=== PATIENT | female | born 1980 | race African-American/Black ===

== ENCOUNTER 2017-08-01 09:51 | Emergency (ER) | payer OTHER ==
[~2017-08-01] VITALS: Ht 165.1 cm; Wt 92.0 kg
[~2017-08-01 09:51] MED LIST: ACET-3161 PO; AMLO-375 PO; GABA-290 PO; HYDR200T PO; METH250T11 PO; PREN-52 PO
[2017-08-01 10:23] LABS: BASOPHILS % 0.6 % (0.0-2.0); EOSINOPHILS % 3.6 % (0.0-5.0); HEMATOCRIT. 29.2 % (36.0-48.0); HEMOGLOBIN. 9.6 g/dL (12.0-16.0); LYMPHOCYTES % 20.9 % (20.0-50.0); MEAN CORPUSCULAR HEMOGLOBIN 27.5 pg (28.0-32.0); MEAN CORPUSCULAR VOLUME 83.7 fL (81.0-99.0); MEAN PLATELET VOLUME 7.3 fl (7.4-10.4); MONOCYTES % 8.8 % (2.0-8.0); NEUTROPHILS % 66.1 % (40.0-76.0); PLATELET 280 x1000/uL (130-400); RED BLOOD CELL COUNT 3.49 mill/uL (4.2-5.4); RED CELL DISTRIBUTION WIDTH 15.4 % (11.6-14.6)
[2017-08-01 10:39] LABS: CARBON DIOXIDE 26 mEq/L (21-32); CHLORIDE 102 mEq/L (98-107); TROPONIN I < 0.02 ng/mL (0.00-0.04)
[2017-08-01] MEDS ORDERED: CLINDAMYCIN 600 MG in DEXTROSE 5% WATER 50 ML IV ONE (10:45)
[2017-08-01] MEDS ORDERED: MORPHINE SULFATE 4 MG/ML CPJ (NOT FOR IM USE) IV ONE (10:45)
[2017-08-01] MEDS ORDERED: CLINDAMYCIN 600MG PREMIX 50 ML IV ONE (11:15)
[2017-08-01 13:05] VITALS: BP 145/75
== END 2017-08-01 13:08 | disposition home or self-care (01) ==
LOC: ER 10:02
DX: L03.116 Cellulitis of left lower limb (principal); L03.115 Cellulitis of right lower limb; I50.9 Heart failure, unspecified; I11.0 Hypertensive heart disease with heart failure; J45.909 Unspecified asthma, uncomplicated; M32.9 Systemic lupus erythematosus, unspecified; Z88.0 Allergy status to penicillin
CPT/HCPCS: 36415; 71010; 80053; 83880; 84484; 85025; 85610; 93970; 96365; 96375; 99285; J2270; J3490; J7060

== ENCOUNTER 2017-09-23 13:33 | Emergency (ER) | payer OTHER ==
[~2017-09-23] VITALS: Ht 175.3 cm; Wt 160.0 kg
[2017-09-23 19:14] LABS: CLARITY URINE CLEAR (CLEAR); COLOR URINE YELLOW (YELLOW); KETONES URINE NEGATIVE (NEGATIVE); LEUKOCYTE ESTERASE URINE NEGATIVE (NEGATIVE); NITRITE URINE NEGATIVE (NEGATIVE); OCCULT BLOOD URINE TRACE (NEGATIVE); PROTEIN URINE 3+ (NEGATIVE); UROBILINOGEN URINE 0.2 E.U./dL (0.2-1.0)
[2017-09-23 19:23] LABS: BASOPHILS % 0.3 % (0.0-2.0); EOSINOPHILS % 0.5 % (0.0-5.0); HEMATOCRIT. 24.3 % (36.0-48.0); HEMOGLOBIN. 7.5 g/dL (12.0-16.0); LYMPHOCYTES % 18.8 % (20.0-50.0); MEAN CORPUSCULAR HEMOGLOBIN 25.2 pg (28.0-32.0); MEAN CORPUSCULAR VOLUME 81.1 fL (81.0-99.0); MEAN PLATELET VOLUME 6.7 fl (7.4-10.4); NEUTROPHILS % 72.4 % (40.0-76.0); PLATELET 545 x1000/uL (130-400); RED BLOOD CELL COUNT 2.99 mill/uL (4.2-5.4); RED CELL DISTRIBUTION WIDTH 15.9 % (11.6-14.6)
[2017-09-23 19:24] LABS: CARBON DIOXIDE 24 mEq/L (21-32); CHLORIDE 107 mEq/L (98-107)
[2017-09-23] MEDS ORDERED: HYDROCODONE/ACETAMINOPHEN 5/325MG TABLET PO ONE (20:15)
[2017-09-23] MEDS ORDERED: KETOROLAC 60MG/2ML VIAL IM ONE (20:15)
[2017-09-24 00:37] VITALS: BP 145/75
== END 2017-09-24 00:39 | disposition home or self-care (01) ==
LOC: ER 13:33
DX: S00.11XA Contusion of right eyelid and periocular area, initial encounter (principal); S00.83XA Contusion of other part of head, initial encounter; M32.9 Systemic lupus erythematosus, unspecified; D64.9 Anemia, unspecified; J45.909 Unspecified asthma, uncomplicated; I50.9 Heart failure, unspecified; H11.31 Conjunctival hemorrhage, right eye; Z88.0 Allergy status to penicillin; W19.XXXA Unspecified fall, initial encounter; Y93.89 Activity, other specified; Y92.89 Other specified places as the place of occurrence of the external cause; Y99.8 Other external cause status
CPT/HCPCS: 36415; 80053; 81001; 81025; 83690; 85025; 86850; 86900; 86901; 96372; 99284; J1885; Z7610

== ENCOUNTER 2018-08-24 01:14 | Inpatient (IN) | payer OTHER ==
[~2018-08-24] VITALS: Ht 180.3 cm; Wt 139.7 kg
[~2018-08-24 01:14] MED LIST changes: -AMLO-375 PO; +AMLO5TAB88 PO; +AZAT50TA24 PO; +CETI10TA6 PO; +DULO60CA63 PO; +FURO40TA5 PO; -GABA-290 PO; +GABA-533 PO; +HYDR-4005 PO; -HYDR200T PO; +HYDR200T80 PO; -METH250T11 PO; +METH250T26 PO; +PRED5TAB PO; -PREN-52 PO; +ZOLP5TAB8 PO
[2018-08-24] MEDS ORDERED: ACETAMINOPHEN 500MG TABLET PO NR (02:15)
[2018-08-24] MEDS ORDERED: SODIUM CHLORIDE 0.9% 1,000 ML IV ONE (02:15)
[2018-08-24] MEDS ORDERED: METHYLPREDNISOLONE SOD SUCC 125 MG/2 ML VIAL IV ONE (02:15)
[2018-08-24 03:13] LABS: CHLORIDE 105 mEq/L (98-107)
[2018-08-24 03:14] LABS: HEMATOCRIT. 28.1 % (36.0-48.0); HEMOGLOBIN. 9.3 g/dL (12.0-16.0); MEAN CORPUSCULAR HEMOGLOBIN 30.7 pg (28.0-32.0); MEAN CORPUSCULAR VOLUME 92.5 fL (81.0-99.0); MEAN PLATELET VOLUME 6.6 fl (7.4-10.4); PLATELET 289 x1000/uL (130-400); RED BLOOD CELL COUNT 3.04 mill/uL (4.2-5.4); RED CELL DISTRIBUTION WIDTH 15.7 % (11.6-14.6)
[2018-08-24] MEDS ORDERED: VANCOMYCIN 1 G PREMIX 200 ML IV SCH (04:45)
[2018-08-24] MEDS ORDERED: PIPERACILLIN/TAZOBACTAM 3.375GM/50ML PREMIX IV ONE (04:45)
[2018-08-24] MEDS ORDERED: ONDANSETRON HCL 4MG/2ML INJ IV ONE (05:00)
[2018-08-24] MEDS ORDERED: MORPHINE SULFATE 4 MG/ML CPJ (NOT FOR IM USE) IV ONE (05:00)
[2018-08-24] MEDS ORDERED: PIPERACILLIN/TAZ 3.375G PREMIX 50 ML IV NR (05:15)
[2018-08-24 05:48] LABS: PLATELET ESTIMATE NORMAL
[2018-08-24 08:00] VITALS: BP 242/98
[2018-08-24 09:00] VITALS: BP 178/81
[2018-08-24] MEDS: HYDROMORPHONE HCL/PF 2MG/ML CPJ IV PRN (10:31)
[2018-08-24 12:00] VITALS: BP 143/66
[2018-08-24] MEDS: ENOXAPARIN 40MG/0.4ML SYR SUBCUT SCH (12:00)
[2018-08-24] MEDS ORDERED: VANCOMYCIN 1500MG in DEXTROSE 5% WATER 250ML IV NR (13:00)
[2018-08-24] MEDS ORDERED: HYDRALAZINE 20MG/ML VIAL IV PRN (15:30)
[2018-08-24] MEDS: PIPERACILLIN/TAZ 2.25G PREMIX 50 ML IV SCH ×2 (15:42→20:58)
[2018-08-24 16:00] VITALS: BP 150/68
[2018-08-24 16:20] LABS: BG BASE EXCESS -8.7 mmol/L (-2.0-2.0); BG CARBOXYHEMOGLOBIN 0.1 % (0.5-1.5); BG DEOXYHEMOGLOBIN 7.7 % (0.0-5.0); BG FRACTION INSPIRED OXYGEN 32; BG HCO3 ACT 15.5 mmol/L (22.0-26.0); BG METHEMOGLOBIN 0.2 % (0.0-1.5); BG OXYGEN SATURATION 92.3 % (92.0-98.5); BG PH 7.362 (7.350-7.450); BG SAMPLE SITE RIGHT BRACHIAL; BG TOTAL HEMOGLOBIN 10.1 g/dL (12.0-18.0); BG VENT MODE NASAL CANNULA
[2018-08-24 20:00] VITALS: BP 162/84
[2018-08-24] MEDS: LABETALOL HCL 100MG TABLET PO SCH (20:57)
[2018-08-24] MEDS: ACETAMINOPHEN 325MG TABLET PO PRN (20:58)
[2018-08-25] VITALS: BP 127/72
[2018-08-25] MEDS: METHYLPREDNISOLONE SOD SUCC 125 MG/2 ML VIAL IV SCH ×4 (00:45→21:48)
[2018-08-25 04:00] VITALS: BP 127/64
[2018-08-25] MEDS: HYDROMORPHONE HCL/PF 2MG/ML CPJ IV PRN ×2 (04:07→23:36)
[2018-08-25 05:05] LABS: CLARITY URINE CLEAR (CLEAR); COLOR URINE YELLOW (YELLOW); KETONES URINE NEGATIVE (NEGATIVE); LEUKOCYTE ESTERASE URINE NEGATIVE (NEGATIVE); NITRITE URINE NEGATIVE (NEGATIVE); OCCULT BLOOD URINE 3+ (NEGATIVE); PROTEIN URINE 3+ (NEGATIVE); SPECIFIC GRAVITY URINE 1.012 (1.005-1.030); UROBILINOGEN URINE 0.2 E.U./dL (0.2-1.0)
[2018-08-25 05:37] LABS: HEMATOCRIT. 25.4 % (36.0-48.0); HEMOGLOBIN. 8.5 g/dL (12.0-16.0); MEAN CORPUSCULAR HEMOGLOBIN 30.8 pg (28.0-32.0); MEAN CORPUSCULAR VOLUME 92.1 fL (81.0-99.0); MEAN PLATELET VOLUME 7.3 fl (7.4-10.4); PLATELET 284 x1000/uL (130-400); RED BLOOD CELL COUNT 2.76 mill/uL (4.2-5.4); RED CELL DISTRIBUTION WIDTH 15.9 % (11.6-14.6)
[2018-08-25] MEDS: ACETAMINOPHEN 325MG TABLET PO PRN ×3 (05:40→17:55)
[2018-08-25 05:43] LABS: CHLORIDE 101 mEq/L (98-107)
[2018-08-25] MEDS: SODIUM CHLORIDE 0.9% 1,000 ML IV SCH ×3 (05:43→23:49)
[2018-08-25 05:49] LABS: PHOSPHORUS 5.2 mg/dL (2.5-4.9)
[2018-08-25] MEDS: PIPERACILLIN/TAZ 2.25G PREMIX 50 ML IV SCH ×3 (06:41→17:19)
[2018-08-25 08:00] VITALS: BP 154/73
[2018-08-25] MEDS: LABETALOL HCL 100MG TABLET PO SCH ×2 (08:39→21:00)
[2018-08-25] MEDS: AMLODIPINE 10MG TABLET PO SCH (08:39)
[2018-08-25] MEDS: ENOXAPARIN 40MG/0.4ML SYR SUBCUT SCH (08:40)
[2018-08-25] MEDS ORDERED: SODIUM POLYSTYRENE SULFONATE 15 G/60 ML BOT PO SCH (09:00)
[2018-08-25 09:02] LABS: CREATININE URINE RANDOM 74.9 mg/dL
[2018-08-25] MEDS ORDERED: LIDOCAINE HCL 1% 20ML VIAL (Pyxis) INJ ONE (09:36)
[2018-08-25] MEDS ORDERED: SODIUM BICARBONATE 4% (2.4MEQ) 5ML VIAL IV ONE (09:36)
[2018-08-25 10:57] LABS: HCG SCREEN NEGATIVE
[2018-08-25] MEDS: CITRIC ACID/SODIUM CITRATE SOLN 30ML UDC PO SCH ×3 (11:45→17:18)
[2018-08-25 12:00] VITALS: BP 140/79
[2018-08-25 13:41] LABS: PLATELET ESTIMATE NORMAL
[2018-08-25 16:00] VITALS: BP 139/83
[2018-08-25 20:00] VITALS: BP 150/89
[2018-08-26] VITALS: BP 144/88
[2018-08-26] MEDS: PIPERACILLIN/TAZ 2.25G PREMIX 50 ML IV SCH ×5 (00:27→23:36)
[2018-08-26] MEDS: HYDROMORPHONE HCL/PF 2MG/ML CPJ IV PRN (03:47)
[2018-08-26 04:00] VITALS: BP 145/80
[2018-08-26] MEDS: METHYLPREDNISOLONE SOD SUCC 125 MG/2 ML VIAL IV SCH ×4 (06:01→23:37)
[2018-08-26 08:00] VITALS: BP_SYST 138; BP_SYST 177; BP_DIAS 79; BP_DIAS 83
[2018-08-26 08:57] LABS: HEMATOCRIT. 26.8 % (36.0-48.0); HEMOGLOBIN. 8.7 g/dL (12.0-16.0); MEAN CORPUSCULAR HEMOGLOBIN 29.7 pg (28.0-32.0); MEAN CORPUSCULAR VOLUME 91.3 fL (81.0-99.0); MEAN PLATELET VOLUME 7.5 fl (7.4-10.4); PLATELET 346 x1000/uL (130-400); RED BLOOD CELL COUNT 2.94 mill/uL (4.2-5.4)
[2018-08-26] MEDS: CITRIC ACID/SODIUM CITRATE SOLN 30ML UDC PO SCH ×3 (09:05→19:16)
[2018-08-26] MEDS: MYCOPHENOLATE MOFETIL 500MG TABLET PO SCH ×2 (09:06→21:00)
[2018-08-26] MEDS: AMLODIPINE 10MG TABLET PO SCH (09:06)
[2018-08-26] MEDS: LABETALOL HCL 100MG TABLET PO SCH ×2 (09:06→21:00)
[2018-08-26] MEDS: HYDROXYCHLOROQUINE SULFATE 200MG TABLET PO SCH ×2 (09:06→19:16)
[2018-08-26] MEDS: ENOXAPARIN 40MG/0.4ML SYR SUBCUT SCH (09:06)
[2018-08-26 09:08] LABS: A/G RATIO 0.8 (0.7-1.7); ALBUMIN 2.5 g/dL (2.9-4.4); ALPHA-1-GLOBULIN 0.5 g/dL (0.0-0.4); BETA GLOBULIN 1.1 g/dL (0.7-1.3); GAMMA GLOBULINS 0.7 g/dL (0.4-1.8); GLOBULIN TOTAL 3.3 g/dL (2.2-3.9); M-SPIKE Not Observed g/dL (Not Observed); TOTAL PROTEIN SERUM 5.8 g/dL (6.0-8.5)
[2018-08-26] MEDS: ACETAMINOPHEN 325MG TABLET PO PRN ×2 (09:11→19:21)
[2018-08-26 09:22] LABS: PHOSPHORUS 6.1 mg/dL (2.5-4.9)
[2018-08-26 09:25] LABS: T4 FREE 1.12 ng/dL (0.76-1.46)
[2018-08-26 10:36] LABS: PLATELET ESTIMATE NORMAL
[2018-08-26 12:00] VITALS: BP 133/70
[2018-08-26] MEDS: SODIUM CHLORIDE 0.9% 1,000 ML IV SCH (13:37)
[2018-08-26] MEDS ORDERED: VANCOMYCIN 1250MG in DEXTROSE 5% WATER 250ML IV SCH (14:00)
[2018-08-26 16:00] VITALS: BP 177/83
[2018-08-26 20:00] VITALS: BP 159/85
[2018-08-26 23:45] LABS: INR 0.9; PROTHROMBIN TIME 9.2 sec (9.1-11.1)
[2018-08-27] VITALS: BP 147/81
[2018-08-27] MEDS: WARFARIN SODIUM 2.5MG TABLET PO SCH ×2 (01:07→17:32)
[2018-08-27 04:00] VITALS: BP 156/100
[2018-08-27 04:16] LABS: DRVVT LA 37.2 sec (0.0-47.0); LUPUS ANTICOAG INTERPRETATION Comment: (.); PTT-LA 38.3 sec (0.0-51.9)
[2018-08-27] MEDS: PIPERACILLIN/TAZ 2.25G PREMIX 50 ML IV SCH ×3 (05:08→17:31)
[2018-08-27] MEDS: METHYLPREDNISOLONE SOD SUCC 125 MG/2 ML VIAL IV SCH ×3 (05:08→17:32)
[2018-08-27] MEDS: SODIUM CHLORIDE 0.9% 1,000 ML IV SCH (05:09)
[2018-08-27] MEDS: HYDROMORPHONE HCL/PF 2MG/ML CPJ IV PRN (06:18)
[2018-08-27 08:00] VITALS: BP 168/98
[2018-08-27] MEDS: ENOXAPARIN 40MG/0.4ML SYR SUBCUT SCH (09:05)
[2018-08-27 09:06] LABS: COMPLEMENT C3 151 mg/dL (82-167)
[2018-08-27] MEDS: CITRIC ACID/SODIUM CITRATE SOLN 30ML UDC PO SCH ×3 (10:22→17:32)
[2018-08-27] MEDS: LABETALOL HCL 100MG TABLET PO SCH ×2 (10:22→20:53)
[2018-08-27] MEDS: MYCOPHENOLATE MOFETIL 500MG TABLET PO SCH ×2 (10:22→20:53)
[2018-08-27] MEDS: AMLODIPINE 10MG TABLET PO SCH (10:22)
[2018-08-27] MEDS: HYDROXYCHLOROQUINE SULFATE 200MG TABLET PO SCH ×2 (10:22→17:32)
[2018-08-27 11:06] LABS: INR 0.9; PROTHROMBIN TIME 9.2 sec (9.1-11.1)
[2018-08-27] MEDS: ONDANSETRON HCL 4MG/2ML INJ IV PRN (11:21)
[2018-08-27 11:39] LABS: HEMATOCRIT. 31.8 % (36.0-48.0); HEMOGLOBIN. 10.2 g/dL (12.0-16.0); MEAN CORPUSCULAR HEMOGLOBIN 30.5 pg (28.0-32.0); MEAN CORPUSCULAR VOLUME 94.9 fL (81.0-99.0); MEAN PLATELET VOLUME 7.6 fl (7.4-10.4); PLATELET 444 x1000/uL (130-400); RED BLOOD CELL COUNT 3.35 mill/uL (4.2-5.4); RED CELL DISTRIBUTION WIDTH 17.1 % (11.6-14.6)
[2018-08-27 12:00] VITALS: BP 198/122
[2018-08-27 13:11] LABS: ANTI-DNA DOUBLE STRANDED QUANT 8 IU/mL (0-9)
[2018-08-27 13:16] LABS: PLATELET ESTIMATE INCREASED
[2018-08-27] MEDS: HYDRALAZINE 10 MG in SODIUM CHLORIDE 0.9% 49.5 ML IV PRN (13:45)
[2018-08-27 15:06] LABS: B-2 GLYCOPROTEIN IGA < 9 (0-25); B-2 GLYCOPROTEIN IGG < 9 (0-20)
[2018-08-27 15:23] LABS: CHLORIDE 102 mEq/L (98-107)
[2018-08-27 15:29] LABS: PHOSPHORUS 4.7 mg/dL (2.5-4.9)
[2018-08-27 15:32] LABS: CREATINE KINASE 85 IU/L (26-192)
[2018-08-27] MEDS: ACETAMINOPHEN 325MG TABLET PO PRN (15:56)
[2018-08-27 16:00] VITALS: BP 174/106
[2018-08-27] MEDS ORDERED: WARFARIN SODIUM 2.5MG TABLET PO SCH (18:00)
[2018-08-27 19:06] LABS: RNP ANTIBODY 0.2 AI (0.0-0.9); SMITH ANTIBODY 2.1 AI (0.0-0.9)
[2018-08-27 23:43] VITALS: BP 143/88
[2018-08-28] VITALS (7 sets, daily range): BP systolic 145–185; BP diastolic 76–97
[2018-08-28] MEDS: METHYLPREDNISOLONE SOD SUCC 125 MG/2 ML VIAL IV SCH ×4 (00:03→17:07)
[2018-08-28] MEDS: PIPERACILLIN/TAZ 2.25G PREMIX 50 ML IV SCH ×4 (00:04→18:40)
[2018-08-28] MEDS: HYDRALAZINE 10 MG in SODIUM CHLORIDE 0.9% 49.5 ML IV PRN ×2 (03:11→17:06)
[2018-08-28 07:29] LABS: HEMATOCRIT. 27.7 % (36.0-48.0); HEMOGLOBIN. 9.1 g/dL (12.0-16.0); MEAN CORPUSCULAR HEMOGLOBIN 30.6 pg (28.0-32.0); MEAN PLATELET VOLUME 7.6 fl (7.4-10.4); PLATELET 436 x1000/uL (130-400); RED BLOOD CELL COUNT 2.98 mill/uL (4.2-5.4); RED CELL DISTRIBUTION WIDTH 16.9 % (11.6-14.6)
[2018-08-28 07:31] LABS: INR 0.9; PROTHROMBIN TIME 9.4 sec (9.1-11.1)
[2018-08-28 08:02] LABS: PHOSPHORUS 5.2 mg/dL (2.5-4.9)
[2018-08-28] MEDS: MYCOPHENOLATE MOFETIL 500MG TABLET PO SCH ×2 (08:45→22:38)
[2018-08-28] MEDS: AMLODIPINE 10MG TABLET PO SCH (08:45)
[2018-08-28] MEDS: HYDROXYCHLOROQUINE SULFATE 200MG TABLET PO SCH ×2 (08:45→17:07)
[2018-08-28] MEDS: ENOXAPARIN 40MG/0.4ML SYR SUBCUT SCH ×2 (08:46→08:48)
[2018-08-28] MEDS: LABETALOL HCL 100MG TABLET PO SCH ×2 (08:46→22:44)
[2018-08-28] MEDS: CITRIC ACID/SODIUM CITRATE SOLN 30ML UDC PO SCH ×3 (08:47→16:31)
[2018-08-28] MEDS: ONDANSETRON HCL 4MG/2ML INJ IV PRN ×2 (10:54→18:40)
[2018-08-28] MEDS ORDERED: VANCOMYCIN 1250MG in DEXTROSE 5% WATER 250ML IV NR (11:00)
[2018-08-28 11:03] LABS: PLATELET ESTIMATE SLIGHTLY INCREASED
[2018-08-28 13:06] LABS: ANTI-MYELOPEROXIDASE AB < 9.0 U/mL (0.0-9.0); ANTI-PROTEINASE 3 ABS < 3.5 U/mL (0.0-3.5)
[2018-08-28 17:06] LABS: ANTI-CARDIOLIPIN AB IGA < 9 APL U/mL (0-11); ANTI-CARDIOLIPIN AB IGG < 9 GPL U/mL (0-14); ANTI-CARDIOLIPIN AB IGM 9 MPL U/mL (0-12)
[2018-08-28] MEDS: WARFARIN SODIUM 2.5MG TABLET PO SCH ×2 (17:06→17:17)
[2018-08-28] MEDS: ACETAMINOPHEN 325MG TABLET PO PRN (17:26)
[2018-08-29] VITALS: BP 167/77
[2018-08-29] MEDS: PIPERACILLIN/TAZ 2.25G PREMIX 50 ML IV SCH ×4 (00:54→17:09)
[2018-08-29] MEDS: HYDRALAZINE 10 MG in SODIUM CHLORIDE 0.9% 49.5 ML IV PRN (00:54)
[2018-08-29] MEDS: METHYLPREDNISOLONE SOD SUCC 125 MG/2 ML VIAL IV SCH ×4 (00:55→17:09)
[2018-08-29 04:00] VITALS: BP 187/96
[2018-08-29] MEDS: ACETAMINOPHEN 325MG TABLET PO PRN (04:06)
[2018-08-29 08:00] VITALS: BP 187/102
[2018-08-29] MEDS: HYDROXYCHLOROQUINE SULFATE 200MG TABLET PO SCH ×2 (08:31→16:24)
[2018-08-29] MEDS: AMLODIPINE 10MG TABLET PO SCH (08:31)
[2018-08-29] MEDS: ENOXAPARIN 40MG/0.4ML SYR SUBCUT SCH (08:31)
[2018-08-29] MEDS: CITRIC ACID/SODIUM CITRATE SOLN 30ML UDC PO SCH ×3 (08:31→17:00)
[2018-08-29] MEDS: MYCOPHENOLATE MOFETIL 500MG TABLET PO SCH (08:32)
[2018-08-29] MEDS: LABETALOL HCL 100MG TABLET PO SCH (08:32)
[2018-08-29 09:06] LABS: GLOMERULAR BASEMENT MEMB AB 3 units (0-20)
[2018-08-29 09:07] LABS: HEMATOCRIT. 29.3 % (36.0-48.0); HEMOGLOBIN. 9.5 g/dL (12.0-16.0); MEAN CORPUSCULAR HEMOGLOBIN 29.8 pg (28.0-32.0); MEAN CORPUSCULAR VOLUME 92.3 fL (81.0-99.0); MEAN PLATELET VOLUME 7.8 fl (7.4-10.4); PLATELET 526 x1000/uL (130-400); RED BLOOD CELL COUNT 3.17 mill/uL (4.2-5.4); RED CELL DISTRIBUTION WIDTH 16.2 % (11.6-14.6)
[2018-08-29 09:08] LABS: INR 0.9; PROTHROMBIN TIME 9.5 sec (9.1-11.1)
[2018-08-29 10:18] LABS: PHOSPHORUS 4.9 mg/dL (2.5-4.9)
[2018-08-29 10:56] LABS: PLATELET ESTIMATE INCREASED
[2018-08-29 12:00] VITALS: BP 160/73
[2018-08-29] MEDS ORDERED: POTASSIUM CHLORIDE 20MEQ TABLET SR PO SCH (12:00)
[2018-08-29] MEDS: HYDRALAZINE HCL 25MG TABLET PO SCH (13:49)
[2018-08-29] MEDS: NIFEDIPINE XL 60MG TAB PO SCH (13:49)
[2018-08-29 16:00] VITALS: BP 124/74
[2018-08-29] MEDS: WARFARIN SODIUM 2.5MG TABLET PO SCH (17:09)
[2018-08-29 20:00] VITALS: BP 144/60
[2018-08-30] VITALS (7 sets, daily range): BP systolic 127–170; BP diastolic 52–80
[2018-08-30] MEDS: NIFEDIPINE XL 60MG TAB PO SCH ×3 (00:13→22:17)
[2018-08-30] MEDS: MYCOPHENOLATE MOFETIL 500MG TABLET PO SCH ×3 (00:13→22:16)
[2018-08-30] MEDS: HYDRALAZINE HCL 25MG TABLET PO SCH ×2 (00:13→06:34)
[2018-08-30] MEDS: LABETALOL HCL 100MG TABLET PO SCH ×3 (00:14→22:16)
[2018-08-30] MEDS: METHYLPREDNISOLONE SOD SUCC 125 MG/2 ML VIAL IV SCH ×4 (00:23→17:04)
[2018-08-30] MEDS: PIPERACILLIN/TAZ 2.25G PREMIX 50 ML IV SCH ×2 (01:36→06:32)
[2018-08-30] MEDS: ENOXAPARIN 40MG/0.4ML SYR SUBCUT SCH (08:44)
[2018-08-30] MEDS: HYDROXYCHLOROQUINE SULFATE 200MG TABLET PO SCH ×2 (08:44→17:04)
[2018-08-30] MEDS: CITRIC ACID/SODIUM CITRATE SOLN 30ML UDC PO SCH ×3 (08:45→16:03)
[2018-08-30] MEDS: HYDRALAZINE HCL 50MG TABLET PO SCH ×2 (13:41→22:16)
[2018-08-30] MEDS: WARFARIN SODIUM 2.5MG TABLET PO SCH (17:04)
[2018-08-30] MEDS: ACETAMINOPHEN 325MG TABLET PO PRN (20:43)
[2018-08-30] MEDS ORDERED: VANCOMYCIN 1 G PREMIX 200 ML IV NR (21:00)
[2018-08-30] MEDS ORDERED: VANCOMYCIN 1250MG in DEXTROSE 5% WATER 250ML IV NR (21:00)
[2018-08-31] VITALS: BP 153/68
[2018-08-31 04:00] VITALS: BP 142/68
[2018-08-31] MEDS: HYDRALAZINE HCL 50MG TABLET PO SCH (05:15)
[2018-08-31] MEDS: ACETAMINOPHEN 325MG TABLET PO PRN (05:19)
[2018-08-31 07:31] LABS: HEMATOCRIT. 25.7 % (36.0-48.0); HEMOGLOBIN. 8.5 g/dL (12.0-16.0); MEAN CORPUSCULAR HEMOGLOBIN 30.4 pg (28.0-32.0); MEAN CORPUSCULAR VOLUME 92.1 fL (81.0-99.0); MEAN PLATELET VOLUME 7.4 fl (7.4-10.4); PLATELET 534 x1000/uL (130-400); RED BLOOD CELL COUNT 2.79 mill/uL (4.2-5.4); RED CELL DISTRIBUTION WIDTH 15.8 % (11.6-14.6)
[2018-08-31 07:34] LABS: PROTHROMBIN TIME 10.2 sec (9.1-11.1)
[2018-08-31 07:42] LABS: PHOSPHORUS 4.2 mg/dL (2.5-4.9)
[2018-08-31 08:00] VITALS: BP 138/59
[2018-08-31] MEDS: CITRIC ACID/SODIUM CITRATE SOLN 30ML UDC PO SCH ×2 (09:00→13:00)
[2018-08-31] MEDS ORDERED: PREDNISONE 20MG TABLET PO SCH (09:00)
[2018-08-31] MEDS ORDERED: POTASSIUM CHLORIDE 20MEQ TABLET SR PO NR (09:30)
[2018-08-31] MEDS: HYDROXYCHLOROQUINE SULFATE 200MG TABLET PO SCH (09:52)
[2018-08-31] MEDS: NIFEDIPINE XL 60MG TAB PO SCH (09:53)
[2018-08-31] MEDS: LABETALOL HCL 100MG TABLET PO SCH (09:54)
[2018-08-31] MEDS: MYCOPHENOLATE MOFETIL 500MG TABLET PO SCH (09:54)
[2018-08-31] MEDS: ENOXAPARIN 40MG/0.4ML SYR SUBCUT SCH (09:56)
[2018-08-31 11:25] VITALS: BP_SYST 132; BP_SYST 138; BP_DIAS 62; BP_DIAS 66
[2018-08-31 12:00] VITALS: BP 129/55
[2018-08-31 14:18] LABS: ATYPICAL P-ANCA <1:20 titer (Neg:<1:20); CYTOPLASMIC C-ANCA <1:20 titer (Neg:<1:20); PERINUCLEAR P-ANCA <1:20 titer (Neg:<1:20)
[2018-08-31 14:18] LABS: ANA IFA Positive (.)
[2018-08-31 15:35] LABS: PLATELET ESTIMATE INCREASED
[2018-08-31 16:00] VITALS: BP 141/68
== END 2018-08-31 17:49 | disposition home or self-care (01) | DRG 720 ==
LOC: ER 01:14 → 6EST 05:02 → ENRESERV 07:08
PROVIDERS: ADMIT Internal Medicine; ATTEND Internal Medicine
PROC: 05H533Z Insertion of Infusion Device into Right Subclavian Vein, Percutaneous Approach (ICD-10-PCS; principal; 2018-08-25)
PROC: B5161ZA Fluoroscopy of Right Subclavian Vein using Low Osmolar Contrast, Guidance (ICD-10-PCS; 2018-08-25)
PROC: B546ZZA Ultrasonography of Right Subclavian Vein, Guidance (ICD-10-PCS; 2018-08-25)
DX: A41.9 Sepsis, unspecified organism (principal); E43 Unspecified severe protein-calorie malnutrition; D68.61 Antiphospholipid syndrome; E87.2 Acidosis; N17.9 Acute kidney failure, unspecified; E66.01 Morbid (severe) obesity due to excess calories; M32.14 Glomerular disease in systemic lupus erythematosus; N18.3 Chronic kidney disease, stage 3 (moderate); E87.1 Hypo-osmolality and hyponatremia; L03.211 Cellulitis of face; L03.213 Periorbital cellulitis; D64.9 Anemia, unspecified; J45.909 Unspecified asthma, uncomplicated; M13.0 Polyarthritis, unspecified; I12.9 Hypertensive chronic kidney disease with stage 1 through stage 4 chronic kidney disease, or unspecified chronic kidney disease; D72.810 Lymphocytopenia; R91.8 Other nonspecific abnormal finding of lung field; T38.0X5A Adverse effect of glucocorticoids and synthetic analogues, initial encounter; Z60.2 Problems related to living alone; Z86.73 Personal history of transient ischemic attack (TIA), and cerebral infarction without residual deficits; Z82.49 Family history of ischemic heart disease and other diseases of the circulatory system; Z87.441 Personal history of nephrotic syndrome; Z88.0 Allergy status to penicillin; Y92.89 Other specified places as the place of occurrence of the external cause; Z88.8 Allergy status to other drugs, medicaments and biological substances; Z68.41 Body mass index [BMI] 40.0-44.9, adult; Z79.899 Other long term (current) drug therapy
CPT/HCPCS: 36415; 36569; 36600; 70486; 71045; 71250; 76770; 76937; 77001; 80048; 80202; 82375; 82533; 82550; 82570; 82805; 83520; 83735; 83935; 84100; 84155; 84156; 84165; 84300; 84439; 84443; 84481; 84550; 84703; 85379; 85613; 85651; 85732; 86140; 86146; 86147; 86160; 86225; 86235; 86256; 86592; 86780; 86880; 93005; 93970; 99285; C1725; J0360; J1170; J1650; J2270; J2405; J2543; J2930; J3370; J3490; J7030; J7040; J7060; J7512; J7517

== ENCOUNTER 2018-11-10 17:33 | Inpatient (IN) | payer OTHER ==
[~2018-11-10] VITALS: Ht 180.3 cm; Wt 152.0 kg
[2018-11-10] MEDS ORDERED: SODIUM CHLORIDE 0.9% 1,000 ML IV ONE (19:14)
[2018-11-10 19:15] LABS: MEAN CORPUSCULAR HEMOGLOBIN 30.8 pg (28.0-32.0); MEAN CORPUSCULAR VOLUME 97.3 fL (81.0-99.0); MEAN PLATELET VOLUME 7.1 fl (7.4-10.4); PLATELET 173 x1000/uL (130-400); RED BLOOD CELL COUNT 1.96 mill/uL (4.2-5.4); RED CELL DISTRIBUTION WIDTH 19.8 % (11.6-14.6)
[2018-11-10 19:20] LABS: CHLORIDE 111 mEq/L (98-107)
[2018-11-10 19:34] LABS: D-DIMER 7.7 mg/L FEU (<0.50); PARTIAL THROMBOPLASTIN TIME 31.5 sec (23.4-31.0); PROTHROMBIN TIME 10.1 sec (9.1-11.1)
[2018-11-10 19:40] LABS: HCG SCREEN NEGATIVE
[2018-11-10 19:44] LABS: NUCLEATED RED BLOOD CELLS 1 /100 WBC; PLATELET ESTIMATE NORMAL
[2018-11-11] VITALS (11 sets, daily range): BP systolic 80–137; BP diastolic 41–71
[2018-11-11] MEDS ORDERED: HYDROCODONE/ACETAMINOPHEN 10/325MG TABLET PO PRN (01:00)
[2018-11-11] MEDS ORDERED: IPRATROPIUM/ALBUTEROL 0.5-3(2.5)MG/3ML NEB HHN PRN (01:00)
[2018-11-11] MEDS ORDERED: ONDANSETRON HCL 4MG/2ML INJ IV PRN (01:00)
[2018-11-11] MEDS ORDERED: LABE200T28 PO (01:21)
[2018-11-11] MEDS ORDERED: FERR325T6 PO (01:29)
[2018-11-11] MEDS ORDERED: CHOL100053 PO (01:29)
[2018-11-11] MEDS ORDERED: ALLO100T PO (01:29)
[2018-11-11] MEDS ORDERED: HYDR-3280 PO (01:31)
[2018-11-11] MEDS ORDERED: ACETAMINOPHEN 325MG TABLET PO PRN (02:00)
[2018-11-11] MEDS ORDERED: FUROSEMIDE 40MG/4ML VIAL IVP NR ×2 (02:00→10:15)
[2018-11-11] MEDS: IPRATROPIUM/ALBUTEROL 0.5-3(2.5)MG/3ML NEB HHN SCH ×5 (04:47→22:11)
[2018-11-11] MEDS ORDERED: AZATHIOPRINE 50MG TABLET PO SCH (09:15)
[2018-11-11 10:11] LABS: HEMATOCRIT. 23.1 % (36.0-48.0); HEMOGLOBIN. 7.5 g/dL (12.0-16.0); MEAN CORPUSCULAR HEMOGLOBIN 30.3 pg (28.0-32.0); MEAN CORPUSCULAR VOLUME 93.2 fL (81.0-99.0); MEAN PLATELET VOLUME 6.7 fl (7.4-10.4); PLATELET 161 x1000/uL (130-400); RED BLOOD CELL COUNT 2.48 mill/uL (4.2-5.4); RED CELL DISTRIBUTION WIDTH 19.6 % (11.6-14.6)
[2018-11-11] MEDS: CITRIC ACID/SODIUM CITRATE SOLN 30ML UDC PO SCH ×3 (10:15→18:13)
[2018-11-11] MEDS ORDERED: SODIUM BICARBONATE 8.4% 1 MEQ/ML 50ML SYR IV NR (10:15)
[2018-11-11] MEDS: PREDNISONE 20MG TABLET PO SCH (10:29)
[2018-11-11] MEDS: PANTOPRAZOLE SODIUM 40 MG/VIAL IV SCH (10:30)
[2018-11-11] MEDS: ALLOPURINOL 100 MG TABLET PO SCH (10:30)
[2018-11-11] MEDS: DULOXETINE HCL 60MG DR CAPSULE PO SCH (10:31)
[2018-11-11] MEDS ORDERED: ALBUMIN HUMAN 25GM/100ML (25%) IV SCH (11:00)
[2018-11-11 11:46] LABS: BG BASE EXCESS -14.1 mmol/L (-2.0-2.0); BG CARBOXYHEMOGLOBIN 0.1 % (0.5-1.5); BG FRACTION INSPIRED OXYGEN 28; BG HCO3 ACT 11.1 mmol/L (22.0-26.0); BG METHEMOGLOBIN 0.4 % (0.0-1.5); BG OXYHEMOGLOBIN 97.5 % (94.0-97.0); BG PCO2 23.7 mmHg (35.0-45.0); BG PH 7.287 (7.350-7.450); BG PO2 121.2 mmHg (75.0-100.0); BG SAMPLE SITE RIGHT RADIAL; BG TOTAL HEMOGLOBIN 8.8 g/dL (12.0-18.0); BG VENT MODE NASAL CANNULA
[2018-11-11] MEDS: METHYLDOPA 250MG TABLET PO SCH (11:59)
[2018-11-11 14:43] LABS: NUCLEATED RED BLOOD CELLS 1 /100 WBC; PLATELET ESTIMATE NORMAL
[2018-11-11] MEDS ORDERED: WARFARIN SODIUM 5MG TABLET PO NR (18:00)
[2018-11-11] MEDS ORDERED: WARFARIN SODIUM 2.5MG TABLET PO NR (18:00)
[2018-11-11] MEDS ORDERED: EPOETIN ALFA 10000UNITS/ML VIAL SUBCUT NR (21:00)
[2018-11-11] MEDS: MYCOPHENOLATE MOFETIL 500MG TABLET PO SCH (21:09)
[2018-11-11 21:47] LABS: CLARITY URINE CLEAR (CLEAR); COLOR URINE YELLOW (YELLOW); KETONES URINE NEGATIVE (NEGATIVE); LEUKOCYTE ESTERASE URINE NEGATIVE (NEGATIVE); NITRITE URINE NEGATIVE (NEGATIVE); OCCULT BLOOD URINE NEGATIVE (NEGATIVE); PROTEIN URINE NEGATIVE (NEGATIVE); SPECIFIC GRAVITY URINE 1.007 (1.005-1.030); UROBILINOGEN URINE 0.2 E.U./dL (0.2-1.0)
[2018-11-12 00:09] VITALS: BP 143/77
[2018-11-12] MEDS: IPRATROPIUM/ALBUTEROL 0.5-3(2.5)MG/3ML NEB HHN SCH ×5 (01:20→16:07)
[2018-11-12 04:00] VITALS: BP 134/87
[2018-11-12 07:53] LABS: BASOPHILS % 0.7 % (0.0-2.0); EOSINOPHILS % 0.8 % (0.0-5.0); HEMATOCRIT. 22.5 % (36.0-48.0); HEMOGLOBIN. 7.5 g/dL (12.0-16.0); LYMPHOCYTES % 7.6 % (20.0-50.0); MEAN CORPUSCULAR HEMOGLOBIN 30.5 pg (28.0-32.0); MEAN PLATELET VOLUME 7.2 fl (7.4-10.4); MONOCYTES % 6.7 % (2.0-8.0); NEUTROPHILS % 84.2 % (40.0-76.0); PLATELET 174 x1000/uL (130-400); RED BLOOD CELL COUNT 2.45 mill/uL (4.2-5.4)
[2018-11-12 08:00] VITALS: BP 145/86
[2018-11-12 08:17] LABS: PHOSPHORUS 5.8 mg/dL (2.5-4.9)
[2018-11-12 08:23] LABS: PARTIAL THROMBOPLASTIN TIME 31.1 sec (23.4-31.0); PROTHROMBIN TIME 10.4 sec (9.1-11.1)
[2018-11-12] MEDS ORDERED: FUROSEMIDE 40MG/4ML VIAL IVP SCH (09:00)
[2018-11-12] MEDS: PREDNISONE 20MG TABLET PO SCH (11:03)
[2018-11-12] MEDS: ALLOPURINOL 100 MG TABLET PO SCH (11:07)
[2018-11-12] MEDS: DULOXETINE HCL 60MG DR CAPSULE PO SCH (11:07)
[2018-11-12] MEDS: METHYLDOPA 250MG TABLET PO SCH (11:07)
[2018-11-12] MEDS: MYCOPHENOLATE MOFETIL 500MG TABLET PO SCH (11:08)
[2018-11-12] MEDS: CITRIC ACID/SODIUM CITRATE SOLN 30ML UDC PO SCH ×3 (11:08→17:28)
[2018-11-12] MEDS: PANTOPRAZOLE SODIUM 40 MG/VIAL IV SCH (11:08)
[2018-11-12 12:00] VITALS: BP 95/65
[2018-11-12 16:00] VITALS: BP 118/58
[2018-11-12] MEDS ORDERED: WARFARIN SODIUM 5MG TABLET PO NR (18:00)
[2018-11-12 19:09] VITALS: BP 122/65
[2018-11-13 15:11] LABS: ANTI-DNA DOUBLE STRANDED QUANT 3 IU/mL (0-9)
[2018-11-15 10:09] LABS: DRVVT LA 41.3 sec (0.0-47.0); LUPUS ANTICOAG INTERPRETATION Comment: (.)
[2018-11-15 13:06] LABS: ANTI-CARDIOLIPIN AB IGA < 9 APL U/mL (0-11); ANTI-CARDIOLIPIN AB IGG < 9 GPL U/mL (0-14); ANTI-CARDIOLIPIN AB IGM 13 MPL U/mL (0-12); ANTI-MYELOPEROXIDASE AB < 9.0 U/mL (0.0-9.0); ANTI-PROTEINASE 3 ABS < 3.5 U/mL (0.0-3.5); B-2 GLYCOPROTEIN IGA < 9 (0-25); B-2 GLYCOPROTEIN IGG < 9 (0-20)
[2018-11-16 10:10] LABS: COMPLEMENT C3 129 mg/dL (82-167); GLOMERULAR BASEMENT MEMB AB 4 units (0-20)
[2018-11-17 13:06] LABS: ATYPICAL P-ANCA <1:20 titer (Neg:<1:20); CYTOPLASMIC C-ANCA <1:20 titer (Neg:<1:20); PERINUCLEAR P-ANCA <1:20 titer (Neg:<1:20)
== END 2018-11-12 19:45 | disposition home or self-care (01) | DRG 469 ==
LOC: ER 17:33 → 7WST 21:13 → ENRESERV 22:58
PROVIDERS: ADMIT Internal Medicine; ATTEND Internal Medicine
PROC: 30233N1 Transfusion of Nonautologous Red Blood Cells into Peripheral Vein, Percutaneous Approach (ICD-10-PCS; principal; 2018-11-10)
DX: N17.9 Acute kidney failure, unspecified (principal); J96.90 Respiratory failure, unspecified, unspecified whether with hypoxia or hypercapnia; E43 Unspecified severe protein-calorie malnutrition; E87.2 Acidosis; M32.9 Systemic lupus erythematosus, unspecified; J96.91 Respiratory failure, unspecified with hypoxia; J81.1 Chronic pulmonary edema; Z68.42 Body mass index [BMI] 45.0-49.9, adult; D64.9 Anemia, unspecified; I12.9 Hypertensive chronic kidney disease with stage 1 through stage 4 chronic kidney disease, or unspecified chronic kidney disease; J45.909 Unspecified asthma, uncomplicated; R91.1 Solitary pulmonary nodule; N18.5 Chronic kidney disease, stage 5; Z82.49 Family history of ischemic heart disease and other diseases of the circulatory system; Z86.73 Personal history of transient ischemic attack (TIA), and cerebral infarction without residual deficits; Z88.0 Allergy status to penicillin; Z88.8 Allergy status to other drugs, medicaments and biological substances; Z79.899 Other long term (current) drug therapy; Z79.1 Long term (current) use of non-steroidal anti-inflammatories (NSAID)
CPT/HCPCS: 36415; 36600; 71045; 78580; 80048; 82270; 82375; 82805; 83520; 83540; 83550; 83735; 83880; 84100; 84484; 84703; 85379; 85613; 85732; 86146; 86147; 86160; 86225; 86256; 86850; 86900; 86920; 93005; 93970; 94640; 96374; 96375; 99285; C9113; J0885; J1940; J3490; J7030; J7040; J7050; J7500; J7512; J7517; J7620; P9016; P9047

== ENCOUNTER 2019-09-09 03:57 | Inpatient (IN) | payer MEDICARE, OTHER ==
[~2019-09-09] VITALS: Ht 180.3 cm; Wt 130.2 kg
[~2019-09-09 03:57] MED LIST changes: -ACET-3161 PO; +ALLO100T PO; -CETI10TA6 PO; +CHOL100053 PO; -DULO60CA63 PO; +DULO60CA64 PO; +FERR325T6 PO; -GABA-533 PO; +HYDR-3280 PO; -HYDR-4005 PO; +LABE200T28 PO; -ZOLP5TAB8 PO
[2019-09-09] MEDS ORDERED: FUROSEMIDE 40MG/4ML VIAL IV ONE (04:30)
[2019-09-09 04:50] LABS: BASOPHILS % 0.6 % (0.0-2.0); EOSINOPHILS % 0.9 % (0.0-5.0); HEMATOCRIT. 38.3 % (36.0-48.0); HEMOGLOBIN. 12.4 g/dL (12.0-16.0); LYMPHOCYTES % 18.8 % (20.0-50.0); MEAN CORPUSCULAR HEMOGLOBIN 28.9 pg (28.0-32.0); MEAN CORPUSCULAR VOLUME 89.4 fL (81.0-99.0); MEAN PLATELET VOLUME 7.4 fl (7.4-10.4); MONOCYTES % 7.3 % (2.0-8.0); NEUTROPHILS % 72.4 % (40.0-76.0); PLATELET 310 x1000/uL (130-400); RED BLOOD CELL COUNT 4.29 mill/uL (4.2-5.4); RED CELL DISTRIBUTION WIDTH 16.4 % (11.6-14.6)
[2019-09-09 04:59] LABS: CHLORIDE 106 mEq/L (98-107)
[2019-09-09 09:58] VITALS: BP 178/94
[2019-09-09] MEDS ORDERED: LEVO25TA2 MT (11:20)
[2019-09-09 12:00] VITALS: BP 156/80
[2019-09-09] MEDS ORDERED: DOCUSATE SODIUM 100MG CAPSULE PO PRN (12:15)
[2019-09-09] MEDS ORDERED: CLONIDINE 0.1MG TABLET PO PRN (12:15)
[2019-09-09] MEDS ORDERED: ONDANSETRON HCL 4MG/2ML INJ IV PRN (12:15)
[2019-09-09] MEDS ORDERED: IPRATROPIUM/ALBUTEROL 0.5-3(2.5)MG/3ML NEB NEB PRN (12:15)
[2019-09-09] MEDS ORDERED: ENOXAPARIN 40MG/0.4ML SYR SUBCUT SCH (12:15)
[2019-09-09] MEDS: HYDROXYCHLOROQUINE SULFATE 200MG TABLET PO SCH ×2 (12:40→16:36)
[2019-09-09] MEDS: DULOXETINE HCL 60MG DR CAPSULE PO SCH (12:40)
[2019-09-09 16:00] VITALS: BP 147/97
[2019-09-09 16:37] LABS: CREATINE KINASE 21 IU/L (26-192)
[2019-09-09 16:39] LABS: CREATINE KINASE MB FRACTION < 1.0 ng/mL (0.5-3.6)
[2019-09-09] MEDS: ACETAMINOPHEN 325MG TABLET PO PRN (16:43)
[2019-09-09 20:00] VITALS: BP 157/103
[2019-09-09] MEDS ORDERED: DEXTROSE 50% WATER 50ML SYRINGE IV PRN (20:00)
[2019-09-09] MEDS: INSULIN LISPRO 100 UNITS/ML SUBCUT SCH (21:00)
[2019-09-09] MEDS: BLOOD SUGAR DIAGNOSTIC STRIP TEST SCH (21:22)
[2019-09-09] MEDS: NIFEDIPINE XL 60MG TAB PO SCH (22:56)
[2019-09-10] VITALS: BP 138/86
[2019-09-10 00:32] LABS: CREATINE KINASE 56 IU/L (26-192)
[2019-09-10 00:33] LABS: CREATINE KINASE MB FRACTION < 1.0 ng/mL (0.5-3.6)
[2019-09-10 04:00] VITALS: BP 135/91
[2019-09-10] MEDS: ACETAMINOPHEN 325MG TABLET PO PRN (05:22)
[2019-09-10 06:58] LABS: BASOPHILS % 0.5 % (0.0-2.0); HEMATOCRIT. 37.6 % (36.0-48.0); HEMOGLOBIN. 12.2 g/dL (12.0-16.0); LYMPHOCYTES % 18.6 % (20.0-50.0); MEAN CORPUSCULAR HEMOGLOBIN 28.5 pg (28.0-32.0); MEAN CORPUSCULAR VOLUME 88.2 fL (81.0-99.0); MEAN PLATELET VOLUME 7.5 fl (7.4-10.4); MONOCYTES % 8.7 % (2.0-8.0); NEUTROPHILS % 71.2 % (40.0-76.0); PLATELET 254 x1000/uL (130-400); RED BLOOD CELL COUNT 4.27 mill/uL (4.2-5.4); RED CELL DISTRIBUTION WIDTH 16.3 % (11.6-14.6)
[2019-09-10] MEDS ORDERED: LEVOTHYROXINE SODIUM 25MCG TABLET PO SCH (07:40)
[2019-09-10] MEDS: BLOOD SUGAR DIAGNOSTIC STRIP TEST SCH (07:59)
[2019-09-10] MEDS: INSULIN LISPRO 100 UNITS/ML SUBCUT SCH (07:59)
[2019-09-10 08:00] VITALS: BP 122/75
[2019-09-10] MEDS: HYDROXYCHLOROQUINE SULFATE 200MG TABLET PO SCH (08:34)
[2019-09-10] MEDS: NIFEDIPINE XL 60MG TAB PO SCH (08:34)
[2019-09-10] MEDS: DULOXETINE HCL 60MG DR CAPSULE PO SCH (08:34)
[2019-09-10] MEDS ORDERED: FUROSEMIDE 40MG/4ML VIAL IVP SCH (09:00)
[2019-09-10] MEDS ORDERED: PREDNISONE 20MG TABLET PO SCH (09:00)
[2019-09-10 11:22] VITALS: BP 122/75
== END 2019-09-10 11:58 | disposition home or self-care (01) | DRG 314 ==
LOC: ER 03:57 → 7WST 05:20 → ENRESERV 06:30 → CANRESERV 06:30 → ENRESERV 07:17 → 7WST 09-10 00:16
PROVIDERS: ADMIT Internal Medicine; ATTEND Internal Medicine
PROC: 5A1D70Z Performance of Urinary Filtration, Intermittent, Less than 6 Hours Per Day (ICD-10-PCS; principal; 2019-09-09)
DX: T82.318A Breakdown (mechanical) of other vascular grafts, initial encounter (principal); J96.01 Acute respiratory failure with hypoxia; N18.6 End stage renal disease; I13.2 Hypertensive heart and chronic kidney disease with heart failure and with stage 5 chronic kidney disease, or end stage renal disease; E44.1 Mild protein-calorie malnutrition; Z68.41 Body mass index [BMI] 40.0-44.9, adult; E03.9 Hypothyroidism, unspecified; E66.9 Obesity, unspecified; J45.909 Unspecified asthma, uncomplicated; I50.9 Heart failure, unspecified; M32.9 Systemic lupus erythematosus, unspecified; Y71.2 Prosthetic and other implants, materials and accessory cardiovascular devices associated with adverse incidents; Z86.711 Personal history of pulmonary embolism; Z86.73 Personal history of transient ischemic attack (TIA), and cerebral infarction without residual deficits; Z99.2 Dependence on renal dialysis; Y92.89 Other specified places as the place of occurrence of the external cause; Z88.0 Allergy status to penicillin; Z88.8 Allergy status to other drugs, medicaments and biological substances; Z79.899 Other long term (current) drug therapy
CPT/HCPCS: 36415; 71045; 80048; 82550; 82553; 82962; 83880; 84484; 93005; 93306; 93970; 96374; 99285; J1650; J1940; J7512

== ENCOUNTER 2020-08-14 11:08 | Emergency (ER) | payer MEDICARE, MEDICAID ==
[~2020-08-14] VITALS: Ht 182.9 cm; Wt 100.0 kg
[~2020-08-14 11:08] MED LIST changes: -ALLO100T PO; -AMLO5TAB88 PO; +APIX2.5T PO; -AZAT50TA24 PO; -CHOL100053 PO; +COR3 PO; -FERR325T6 PO; -FURO40TA5 PO; -HYDR-3280 PO; -LABE200T28 PO; +LEVO25TA2 MT; +LISI2.5T47 PO; -METH250T26 PO; +NEPVIT PO
[2020-08-14] MEDS ORDERED: FAMOTIDINE 20MG/2ML VIAL IV ONE (13:00)
[2020-08-14] MEDS ORDERED: DIPHENHYDRAMINE 50MG/ML VIAL IV ONE (13:00)
[2020-08-14] MEDS ORDERED: METHYLPREDNISOLONE SOD SUCC 125 MG/2 ML VIAL IV ONE (13:00)
[2020-08-14 13:11] LABS: BASOPHILS % 0.8 % (0.0-2.0); EOSINOPHILS % 0.7 % (0.0-5.0); HEMATOCRIT. 31.8 % (36.0-48.0); HEMOGLOBIN. 10.3 g/dL (12.0-16.0); LYMPHOCYTES % 19.8 % (20.0-50.0); MEAN CORPUSCULAR HEMOGLOBIN 29.7 pg (28.0-32.0); MEAN PLATELET VOLUME 7.8 fl (7.4-10.4); MONOCYTES % 4.2 % (2.0-8.0); NEUTROPHILS % 74.5 % (40.0-76.0); PLATELET 276 x1000/uL (130-400); RED BLOOD CELL COUNT 3.46 mill/uL (4.2-5.4); RED CELL DISTRIBUTION WIDTH 14.6 % (11.6-14.6)
[2020-08-14 13:13] LABS: CHLORIDE 104 mEq/L (98-107)
[2020-08-14 13:22] LABS: HCG SCREEN NEGATIVE
[2020-08-14] MEDS ORDERED: ONDANSETRON HCL 4MG/2ML INJ IV ONE (14:00)
[2020-08-14 16:00] VITALS: BP 143/83
== END 2020-08-14 16:00 | disposition home or self-care (01) ==
LOC: ER 11:08
DX: T78.40XA Allergy, unspecified, initial encounter (principal); J45.909 Unspecified asthma, uncomplicated; I11.0 Hypertensive heart disease with heart failure; I50.9 Heart failure, unspecified; Z88.0 Allergy status to penicillin; Z79.899 Other long term (current) drug therapy; Z98.890 Other specified postprocedural states; Z86.73 Personal history of transient ischemic attack (TIA), and cerebral infarction without residual deficits; X58.XXXA Exposure to other specified factors, initial encounter
CPT/HCPCS: 36415; 71045; 80053; 84703; 85025; 93005; 96374; 96375; 99285; J1200; J2405; J2930; J3490

== ENCOUNTER 2022-03-28 19:55 | Emergency (ER) | payer MEDICARE, MEDICAID ==
[~2022-03-28] VITALS: Ht 180.3 cm; Wt 136.0 kg
[2022-03-28 20:05] VITALS: BP 189/106
[2022-03-28 23:45] LABS: HEMATOCRIT 35.6 % (36.0-48.0); HEMOGLOBIN 11.8 g/dL (12.0-16.0); MEAN CORPUSCULAR HEMOGLOBIN 29.3 pg (28.0-32.0); MEAN CORPUSCULAR VOLUME 88.7 fL (81.0-99.0); PLATELET 293 x1000/uL (130-400); RED BLOOD CELL COUNT 4.02 mill/uL (4.2-5.4); RED CELL DISTRIBUTION WIDTH 14.3 % (11.6-14.6)
[2022-03-28 23:52] LABS: CHLORIDE 106 mEq/L (98-107)
== END 2022-03-29 02:31 | disposition home or self-care (01) ==
LOC: ER 20:09
DX: N18.6 End stage renal disease (principal); Z99.2 Dependence on renal dialysis; M32.9 Systemic lupus erythematosus, unspecified; Z88.0 Allergy status to penicillin; Z88.8 Allergy status to other drugs, medicaments and biological substances; Z86.73 Personal history of transient ischemic attack (TIA), and cerebral infarction without residual deficits
CPT/HCPCS: 36415; 80053; 85027; 93005; 99284